=== PATIENT | female | born 1985 | race Caucasian/White ===

== ENCOUNTER 2019-05-16 16:32 | Outpatient (CLI) | payer OTHER, SELFPAY ==
--- NOTE | ~2019-05-16 | US_ITS ---
EXAMINATION: US OB /maternal detail DATE: 05/16/2019 17:57 INDICATION: Second trimester anatomic survey TECHNIQUE: Real-time ultrasound of the pelvis was performed. COMPARISON: None. FINDINGS: There is a single living fetus in vertex presentation. The placenta is anterior. heart rate is 154 beats per minute (bpm). cardiac activity and movement are noted. The amniotic fluid index is subjectively normal. The following anatomy was identified as normal: 4 chamber heart 3 vessel cord cord insertion kidneys urinary bladder stomach spine diaphragm ventricles cisterna magna cerebellum The following biometric data were obtained: Biparietal diameter (BPD): 4.7 cm; head circumference (HC): 18.3 cm; abdominal circumference (AC): 16 .4 cm; femur length (FL): 3.7 cm. These measurements are concordant. Estimated weight is 436 g +/- 65 g, which correlates with the >97th percentile when 10/01/2019 is used as estimated date of delivery. As single measurements, these parameters are each equal to the following estimated gestational ages w ith ranges of +/- 2 standard deviations: BPD: 20 weeks 3 days +/- 1 weeks 5 days. HC: 20 weeks 5 days +/- 1 weeks 3 days. AC: 21 weeks 3 days +/- 2 weeks 0 days. FL: 22 weeks 1 days +/- 1 weeks 6 days. estimated gestational age based solely on measurements from this exam is 21 weeks 1 days +/- 1 weeks 3 days. IMPRESSION: 1. Single living fetus in vertex presentation. 2. Estimated weight is 436 g +/- 65 g, which correlates with the >97th percentile when 10/01/2019 is used as estimated date of delivery. Reviewed, dictated and finalized at location A. [facility] IMPRESSION: 1. Single living fetus in vertex presentation. 2. Estimated weight is 436 g +/- 65 g, which correlates with the >97th pe rcentile when 10/01/2019 is used as estimated date of delivery.
== END 2019-05-16 16:33 | disposition home or self-care (01) ==
LOC: ANHIMG 16:39
PROVIDERS: Visit Provider Obstetrics & Gynecology
DX: Z34.90 Encounter for supervision of normal pregnancy, unspecified, unspecified trimester (principal); Z3A.21 21 weeks gestation of pregnancy
CPT/HCPCS: 76805

== ENCOUNTER 2019-07-18 08:40 | Observation (INO) | payer OTHER, SELFPAY ==
[2019-07-18 09:06] VITALS: BP 122/68; PULSE 84
[2019-07-18 09:10] VITALS: BMI 29.8
[2019-07-18 09:32] LABS: Add Urine Microscopic? YES; Appearance Urine Clear (Clear); Bilirubin Urine Negative (Negative); Blood Urine 1+ (Negative); Color Urine Straw (Yellow); Glucose Urine UA Negative (Negative); Ketones Urine Negative (Negative); Leukocyte Esterase Ur Negative LEU/UL (Negative); Mucus Urine Rare /lpf; Nitrate Urine Negative (Negative); Protein Urine Negative (Negative); Specific Grav Ur 1.014 (1.001-1.035); Squamous Epithelial Cell Urine Moderate /hpf (Few); Urobilinogen Urine Negative mg/dL (<2.0); WBC Urine 0-3 /hpf
[2019-07-18 10:00] VITALS: BP 122/73; PULSE 86
--- NOTE | 2019-07-18 16:20 | OBADM ---
This patient, Delmy Longoria, admitted to the OB room OB Post 117 for observation. Patient/family oriented to hospital policies and general routines including ID bracelet, bed and alarms, visiting hours, pain management, procedures, bathroom and other care routines, personal items, smoking policy, room service/diet, and visiting hours. Patient/Family are encouraged to report perceived risks to care and to ask questions if they do not understand what they are told or what they should do.
--- NOTE | 2019-07-22 10:38 | P.PNOB_ITS ---
OB - Triage/Final Diagnosis Visit Information Reason for evaluation: threatened labor Evaluation Laboratory results: Laboratory Tests 07/18/19 09:16 Urine Color Straw Urine Appearance Clear Urine pH 7.0 Ur Specific [place] 1.014 Urine Protein Negative Urine Glucose (UA) Negative Urine Ketones Negative Ur Blood (Man) 1+ H Urine Nitrate Negative Urine Bilirubin Negative Urine Urobilinogen Negative Leukocyte Esterase Rfl Negative Urine RBC 11-20 H Urine WBC 0-3 Ur Squamous Epith Cells Moderate H Urine Mucus Rare
== END 2019-07-18 10:23 | disposition home or self-care (01) ==
PROVIDERS: Admitting Provider Obstetrics & Gynecology; Visit Provider Obstetrics & Gynecology
DX: O47.03 False labor before 37 completed weeks of gestation, third trimester (principal); Z3A.29 29 weeks gestation of pregnancy
CPT/HCPCS: 81001; G0378; G0379

== ENCOUNTER 2019-09-17 15:43 | Outpatient (CLI) | payer OTHER, SELFPAY ==
[2019-09-17 16:15] VITALS: BP 126/71; PULSE 83
[2019-09-17 16:22] LABS: Basophils Percent Auto 0.2 % (0.2-1.2); Eosinophils Absolute Auto 0.1 K/mm3 (0-0.3); Eosinophils Percent Auto 0.8 % (0-4.4); Hematocrit 34.4 % (37.0-47.0); Hemoglobin 11.2 g/dL (12.0-15.0); Immature Granulocyte Absolute 0.05 K/mm3 (0.00-0.031); Immature Granulocyte Percent A 0.5 % (0-0.5); Lymphocytes Absolute Auto 1.84 K/mm3 (0.9-3.2); Lymphocytes Percent Auto 19.2 % (18.3-44.2); Mean Corpuscular HGB Conc 32.6 g/dl (32-36); Mean Corpuscular Hemoglobin 28.7 pg (26-34); Mean Corpuscular Volume 88.2 fl (80-100); Mean Platelet Volume 10.2 fl (7.4-10.4); Monocytes Absolute Auto 0.7 K/mm3 (0.1-0.6); Monocytes Percent Auto 7.7 % (2.6-8.5); Neutrophils Absolute Auto 6.8 K/mm3 (1.3-6.7); Neutrophils Percent Auto 71.6 % (45.5-73.1); Platelet Count Result 247 k/mm3 (150-375); Red Cell Distribution Width 16.3 % (11.5-14.5); White Blood Count 9.6 K/mm3 (4.5-10.0)
[2019-09-17 16:27] LABS: Add Urine Microscopic? YES; Amorphous Sediment Urine Few; Appearance Urine Clear (Clear); Bacteria Urine Trace /hpf; Bilirubin Urine Negative (Negative); Blood Urine 1+ (Negative); Color Urine Yellow (Yellow); Glucose Urine UA Negative (Negative); Ketones Urine Negative (Negative); Leukocyte Esterase Ur Negative LEU/UL (NEGATIVE); Mucus Urine Rare /lpf; Nitrate Urine Negative (Negative); Protein Urine Negative (Negative); Specific Grav Ur 1.012 (1.001-1.035); Squamous Epithelial Cell Urine Occasional /hpf (Few); Urobilinogen Urine Negative mg/dL (<2.0); WBC Urine 0-3 /hpf (0-3)
[2019-09-17 16:30] VITALS: BP 120/69; PULSE 82
[2019-09-17 16:32] LABS: Alanine Aminotransferase 16 U/L (4-35); Albumin Level 3.8 g/dL (3.5-5.1); Alkaline Phosphatase 112 U/L (38-126); Aspartate Amino Transferase 27 U/L (14-36); Bilirubin,Total 0.3 mg/dL (0.2-1.3); Blood Urea Nitrogen 5 mg/dL (7-17); Calcium 9.2 mg/dL (8.4-10.2); Carbon Dioxide 23 mmol/L (22-30); Chloride 106 mmol/L (98-107); Estimated Glomerular Filt Rate > 60; Glucose 114 mg/dL (65-105); Potassium 3.8 mmol/L (3.4-5.0); Sodium 134 mmol/L (137-145); Uric Acid 4.4 mg/dL (2.5-7.5)
--- NOTE | 2019-09-17 16:40 | PC.NURSE ---
Called Dr. Mcintosh with pt status. Pt states that she had a headache earlier that went away, and was gone on admission. Pt states that it is starting to come back. Also states that she had some starry vision earlier, but none currently. Lab results given. BPs given. Informed of contractions seen on monitor, but pt denies feeling them. Reactive tracing. July D/C home.
== END 2019-09-17 16:45 | disposition home or self-care (01) ==
LOC: ANHOBOP 15:49 → ANHOBPP 15:49
PROVIDERS: Obstetrics & Gynecology; Visit Provider Obstetrics & Gynecology
DX: O13.9 Gestational [pregnancy-induced] hypertension without significant proteinuria, unspecified trimester (principal); M79.89 Other specified soft tissue disorders; Z3A.00 Weeks of gestation of pregnancy not specified
CPT/HCPCS: 36415; 59025; 80053; 81001; 84550; 85025; 87086; 87088; 99199

== ENCOUNTER 2019-09-26 17:53 | Inpatient (IN) | payer OTHER, MEDICAID, SELFPAY ==
[2019-09-26] VITALS (10 sets, daily range): BP systolic 118–143; BP diastolic 68–82; PULSE 77–94; RESP 18–20; TEMP 36.4–37.1; BMI 32.9
--- NOTE | 2019-09-26 17:53 | LDADM ---
This patient, Delmy Longoria, was admitted to Labor/Delivery/Recovery 104 on 09/26/19 at 17:53. Plans for labor, pain management and were discussed with patient. Patient/family oriented to hospital policies and general routines including ID bracelet, bed and alarms, visiting hours, pain management, procedures, bathroom and other care routines, personal items, smoking policy, room service/diet and guest tray routines, security routines, and visiting hours. Patient/Family are encouraged to report perceived risks to care and to ask questions if they do not understand what they are told or what they should do. See OBIX for further documentation.
[2019-09-26] MEDS: DINOPROSTONE 10 MG VAG INSERT VAGINAL (18:37)
[2019-09-26 18:38] LABS: Basophils Percent Auto 0.2 % (0.2-1.2); Eosinophils Absolute Auto 0.1 K/mm3 (0-0.3); Eosinophils Percent Auto 0.8 % (0-4.4); Hematocrit 34.5 % (37.0-47.0); Hemoglobin 11.4 g/dL (12.0-15.0); Immature Granulocyte Absolute 0.06 K/mm3 (0.00-0.031); Immature Granulocyte Percent A 0.6 % (0-0.5); Lymphocytes Absolute Auto 2.16 K/mm3 (0.9-3.2); Lymphocytes Percent Auto 23.3 % (18.3-44.2); Mean Corpuscular Hemoglobin 28.8 pg (26-34); Mean Corpuscular Volume 87.1 fl (80-100); Mean Platelet Volume 10.2 fl (7.4-10.4); Monocytes Percent Auto 10.5 % (2.6-8.5); Neutrophils Percent Auto 64.6 % (45.5-73.1); Platelet Count Result 232 k/mm3 (150-375); Red Blood Count 3.96 M/mm3 (4.2-5.4); Red Cell Distribution Width 16.2 % (11.5-14.5); White Blood Count 9.3 K/mm3 (4.5-10.0)
[2019-09-27] VITALS (163 sets, daily range): BP systolic 68–143; BP diastolic 27–109; PULSE 62–149; RESP 13–20; TEMP 36.4–37.2; O2SAT 90–100
[2019-09-27] MEDS: LACTATED RINGERS 1,000 ML 125 ML IV CONT ×4 (05:35→15:34)
[2019-09-27] MEDS: OXYTOCIN 30 UNITS/NS 500 ML 30 UNITS/500 ML BAG 6 UNITS IV CONT (05:35)
--- NOTE | 2019-09-27 08:33 | WPDANESEPPF ---
Anes - Initial Pre Proc Eval Procedure: Labor Epidural Date/Time: 09/27/19 08:33 Surgeon: Shahbaz Yadav MD Pre Op Diagnosis: IOL Patient Data Age: 33 Gender: F Height: 1.7 m Weight: 95.4 kg Last Vital Signs Temp 36.5 C 09/27/19 06:25 Pulse 87 09/27/19 08:30 Resp 20 09/27/19 05:35 BP 129/73 09/27/19 08:30 Allergies Allergy/AdvReac Type Severity Reaction Status Date / Time No Known Allergies Allergy Verified 09/06/19 13:29 Home Medications Medication Instructions Recorded Confirmed Type Gummy 2 tablet PO DAILY 03/06/19 09/26/19 History ferrous sulfate 325 mg PO BID 09/06/19 09/26/19 History Laboratory Tests 09/26/19 09/26/19 09/26/19 18:26 18:26 18:26 WBC 9.3 K/mm3 K/mm3 (4.5-10.0) RBC 3.96 M/mm3 L M/mm3 (4.2-5.4) Hgb 11.4 g/dL L g/dL (12.0-15.0) Hct 34.5 % L % (37.0-47.0) MCV 87.1 fl fl (80-100) MCH 28.8 pg pg (26-34) MCHC 33.0 g/dl g/dl (32-36) RDW 16.2 % H % (11.5-14.5) Plt Count 232 k/mm3 k/mm3 (150-375) MPV 10.2 fl fl (7.4-10.4) Immature Gran % (Auto) 0.6 % H % (0-0.5) Neut % (Auto) 64.6 % % (45.5-73.1) Lymph % (Auto) 23.3 % % (18.3-44.2) [place] % (Auto) 10.5 % H % (2.6-8.5) Eos % (Auto) 0.8 % % (0-4.4) Baso % (Auto) 0.2 % % (0.2-1.2) Lymph # (Auto) 2.16 K/mm3 K/mm3 (0.9-3.2) [place] # (Auto) 1.0 K/mm3 H K/mm3 (0.1-0.6) Eos # (Auto) 0.1 K/mm3 K/mm3 (0-0.3) Baso # (Auto) 0.0 K/mm3 K/mm3 (0.0-0.1) Abs Immat Gran (auto) 0.06 K/mm3 H K/mm3 (0.00-0.031) Absolute Neuts (auto) 6.0 K/mm3 K/mm3 (1.3-6.7) Absolute Nucleated RBC 0.0 K/mm3 K/mm3 (0.0-0.012) Nucleated RBC % 0.0 % % (0.0-0.2) RPR Pending Blood Type O Positive Antibody Screen Negative Patient hx anesthesia problems: none Family hx anesthesia problems: none PMFSH Past Medical History Medical History Arm fracture, left age 7 No pertinent family history Skull fracture age 4 Surgical History Surgical History No significant past surgical history Family History Family History Father Hypertension Grandparent Diabetes mellitus Social History Social History Social History: 2017 Smoking status: Former smoker Substance use: never Spiritual care concerns: No Anes - Eval Final PreProcedure Day of Procedure 09/27/19 08:33 Patient weight: obese Heart: regular rate and rhythm Lungs: normal air movement Airway: Mallampati scale class II Neurological: alert and oriented ASA classification: II Emergent: no Anesthetic plan: proceed Anesthesia type and monitoring: regional epidural Informed Consent: The patient's anesthetic plan and its attendant risks and benefits were discussed with the patient/family/POA. Questions were solicited and answers provided to the satisfaction of the patient/family/POA.
[2019-09-27] MEDS: SODIUM CHLORIDE 0.9% IV 1,000 ML 150 ML I-UTERINE (10:48)
--- NOTE | 2019-09-27 17:18 | WPDANESEFPP ---
Anes - Eval Final PreProcedure Day of Procedure 09/27/19 17:18 Patient weight: obese Heart: regular rate and rhythm Lungs: clear to auscultation and normal air movement Airway: Mallampati scale class II Neurological: alert and oriented Last oral intake: >/= 8 hours ASA classification: II Emergent: no Anesthetic plan: proceed Anesthesia type and monitoring: regional epidural and standard monitoring Informed Consent: The patient's anesthetic plan and its attendant risks and benefits were discussed with the patient/family/POA. Questions were solicited and answers provided to the satisfaction of the patient/family/POA.
--- NOTE | 2019-09-27 17:20 | PM.IMHP ---
H&P: HPI History of Present Illness Chief complaint: IOL Narrative: Delmy Longoria is a 33 year old female presents for induction of labor at39+ weeks. She has had elevated blood pressures in office though her repeat testing and testing has been within normal limits. She has had Cervidil last p.m. followed by amniotomy and Pitocin induction throughout today. She is now up in 5-6 cm swollen cervix and swollen vulva and we will be proceeding with delivery. Options discussed patient and she agrees. Review of Systems Review of Systems: All systems reviewed & are unremarkable except as noted in HPI and below PMFSH Past Medical History Medical History Arm fracture, left age 7 No pertinent family history Skull fracture age 4 Surgical History Surgical History No significant past surgical history Family History Family History Father Hypertension Grandparent Diabetes mellitus Social History Social History Social History: 2017 Smoking status: Former smoker Substance use: never Spiritual care concerns: No Meds Home Medications and Allergies Home Medications Medication Instructions Recorded Confirmed Type Gummy 2 tablet PO DAILY 03/06/19 09/26/19 History ferrous sulfate 325 mg PO BID 09/06/19 09/26/19 History Allergies Allergy/AdvReac Type Severity Reaction Status Date / Time No Known Allergies Allergy Verified 09/06/19 13:29 Vital Signs Vital Signs - 24 hr 09/26/19 18:16 09/26/19 18:50 09/26/19 19:00 Temperature 37.1 C Pulse Rate 92 93 94 Respiratory Rate 20 Blood Pressure 143/80 H 125/82 123/69 Pulse Oximetry 09/26/19 19:15 09/26/19 19:30 09/26/19 19:45 Temperature Pulse Rate 80 83 85 Respiratory Rate Blood Pressure 132/77 127/76 128/68 Pulse Oximetry 09/26/19 20:00 09/26/19 20:15 09/26/19 20:30 Temperature Pulse Rate 81 88 77 Respiratory Rate Blood Pressure 127/78 118/79 121/69 Pulse Oximetry 09/26/19 20:40 09/27/19 00:43 09/27/19 00:46 Temperature 36.4 C 36.4 C L Pulse Rate 64 62 Respiratory Rate 18 18 Blood Pressure 143/77 H 131/77 Pulse Oximetry 09/27/19 01:00 09/27/19 05:35 09/27/19 05:45 Temperature 36.8 C Pulse Rate 63 72 77 Respiratory Rate 20 Blood Pressure 130/79 132/72 126/83 Pulse Oximetry 09/27/19 06:00 09/27/19 06:15 09/27/19 06:25 Temperature 36.5 C Pulse Rate 89 86 Respiratory Rate Blood Pressure 141/85 H 140/77 Pulse Oximetry 09/27/19 06:46 09/27/19 07:00 09/27/19 07:16 Temperature Pulse Rate 87 88 101 H Respiratory Rate Blood Pressure 131/76 131/81 131/109 H Pulse Oximetry 09/27/19 08:16 09/27/19 08:30 09/27/19 08:46 Temperature 36.5 C Pulse Rate 79 87 71 Respiratory Rate Blood Pressure 128/76 129/73 120/74 Pulse Oximetry 09/27/19 09:01 09/27/19 09:36 09/27/19 09:40 Temperature Pulse Rate 80 84 Respiratory Rate Blood Pressure 130/80 136/72 Pulse Oximetry 100 09/27/19 09:42 09/27/19 09:44 09/27/19 09:45 Temperature Pulse Rate 98 92 Respiratory Rate Blood Pressure 128/77 132/73 Pulse Oximetry 100 09/27/19 09:46 09/27/19 09:48 09/27/19 09:50 Temperature Pulse Rate 92 101 H Respiratory Rate Blood Pressure 125/75 132/68 Pulse Oximetry 100 09/27/19 09:51 09/27/19 09:53 09/27/19 09:54 Temperature Pulse Rate 79 76 79 Respiratory Rate Blood Pressure 109/63 68/27 L 109/69 Pulse Oximetry 09/27/19 09:55 09/27/19 09:57 09/27/19 09:58 Temperature Pulse Rate 82 81 91 Respiratory Rate Blood Pressure 114/68 117/68 119/71 Pulse Oximetry 100 09/27/19 09:59 09/27/19 10:00 06/27/20 10:02 Temperature 36.4 C Pulse R
[2019-09-27] MEDS: ceFAZolin 2 GM/D5W 50 ML 2 GM/50 ML BAG IVPB (17:50)
--- NOTE | 2019-09-27 18:42 | P.PCNOB_ITS ---
OB - Delivery Note Procedure Procedure: Procedures Operation Date: 09/27/19 17:50 <No data on this case meets the specified criteria> Intrapartal events: Failure to Progress in Labor Route of delivery: Estimated blood loss (mL): 860 Anesthesia type: Spinal Disposition: PACU Narrative: Patient prepped and draped in the usual manner for this procedure. Pfannenstiel incision was made which was carried down to the fascia. This was extended bilaterally and then the fascia was dissected away from the rectus muscles. Rectus muscles were bluntly dissected peritoneum was readily entered the bladder flap was developed. Lower transverse incision was made extended lower length of the segment. Vertex was delivered without difficulty in the rest of the baby also with further pushing. Cord clamped and cut baby was passed off the operative field and the placenta was removed manually. Uterus was exteriorized approximated using 0 Monocryl in a running interlocking manner once the membranes and clots had been removed from the uterine cavity. Small area of of bleeding in the lower segment was readily rendered hemostatic with a [id number] 0 Maxon suture. All subfascial tissue was noted be hemostatic and the fascia was approximated using 0 Vicryl from left angle midline right an gle to the midline with good approximation hemostasis noted sub. Subcutaneous tissues approximated 0 plain suture and the skin sandra were used to approximate the skin edges. Patient tolerated procedure well sent recovery room in stable condition. [place] Baby Weeks of gestation at delivery: 39 Infant gender: Male Weight (pounds): 8 Weight (ounces): 0 score one minute: 8 score five minutes: 9
[2019-09-27] MEDS: OXYTOCIN 30 UNITS/NS 500 ML 30 UNITS/500 ML BAG 125 UNITS IV CONT (19:19)
--- NOTE | 2019-09-27 20:29 | SUR.PHASEI ---
Report called to María SHELLEY. Pt going to room 282 for pp care once recovery completed.
--- NOTE | 2019-09-27 22:40 | PC.NURSE ---
This patient, Delmy Longoria, was received from Labor & delivery on 09/27/19 at 2240. Personal belongings list checked and signed. Patient/family oriented to unit policies and routines
[2019-09-28] VITALS: BP 111/62; PULSE 92; O2SAT 97
[2019-09-28] MEDS: ACETAMINOPHEN 325 MG TABLET 650 MG PO ×2 (00:15→12:01)
[2019-09-28] MEDS: IBUPROFEN 600 MG TABLET PO ×3 (00:15→22:52)
[2019-09-28 01:00] VITALS: BP 116/67; PULSE 100; O2SAT 98
[2019-09-28 05:28] LABS: Basophils Absolute Auto 0.1 K/mm3 (0.0-0.1); Basophils Percent Auto 0.3 % (0.2-1.2); Eosinophils Percent Auto 0.2 % (0-4.4); Hematocrit 27.6 % (37.0-47.0); Hemoglobin 8.9 g/dL (12.0-15.0); Immature Granulocyte Absolute 0.09 K/mm3 (0.00-0.031); Immature Granulocyte Percent A 0.6 % (0-0.5); Lymphocytes Absolute Auto 1.75 K/mm3 (0.9-3.2); Lymphocytes Percent Auto 11.1 % (18.3-44.2); Mean Corpuscular HGB Conc 32.2 g/dl (32-36); Mean Corpuscular Hemoglobin 28.8 pg (26-34); Mean Corpuscular Volume 89.3 fl (80-100); Mean Platelet Volume 10.5 fl (7.4-10.4); Monocytes Absolute Auto 1.5 K/mm3 (0.1-0.6); Monocytes Percent Auto 9.5 % (2.6-8.5); Neutrophils Absolute Auto 12.3 K/mm3 (1.3-6.7); Neutrophils Percent Auto 78.3 % (45.5-73.1); Platelet Count Result 182 k/mm3 (150-375); Red Blood Count 3.09 M/mm3 (4.2-5.4); Red Cell Distribution Width 16.6 % (11.5-14.5); White Blood Count 15.7 K/mm3 (4.5-10.0)
[2019-09-28 08:00] VITALS: BP 109/58; PULSE 84; RESP 18; TEMP 36.4
[2019-09-28] MEDS: SIMETHICONE 80 MG TAB.CHEW PO ×4 (08:45→22:52)
[2019-09-28] MEDS: LANOLIN (LANSINOH) 7.5 GM CREAM 1 APPLIC TOPICAL (08:45)
[2019-09-28] MEDS: POLYSACCHARIDE IRON COMPLEX 150 MG CAPSULE PO ×2 (08:45→16:01)
[2019-09-28] MEDS: MULTIVIT/MIN/PREN/FOL AC/IRON TABLET 1 TAB PO (08:45)
[2019-09-28] MEDS: DOCUSATE SODIUM 100 MG CAPSULE PO ×2 (08:46→16:03)
[2019-09-28] MEDS: KETOROLAC 30 MG/ML VIAL (*BKC) IV PUSH (08:46)
--- NOTE | 2019-09-28 09:44 | WPDANLDPN2 ---
Anes-Prog Note L&D Date/Time: 09/28/19 09:44 Comfortable throughout: labor and section Neuraxial method: epidural Epidural/Spinal procedure site: clean & non-tender Neuro status: Neuro function grossly intact. Cardiovascular status: normal Respiratory status: normal Airway patency: baseline Mental status: baseline Post-Op hydration status: normal Vital Signs: Last Vital Signs Temp 36.7 C 09/27/19 21:35 Pulse 100 09/28/19 01:00 Resp 16 09/27/19 21:35 BP 116/67 09/28/19 01:00 Pulse Ox 98 09/28/19 01:00 Pain score (VAS): 0/10. Patient resting in bed at time of assessment, appears comfortable. Support person at bedside. I/O: Intake & Output 09/27/19 09/28/19 09/28/19 23:59 07:59 15:59 Intake Total 550 Output Total 365 Balance 185 Post-procedural complaints: none Patient feedback: Patient satisfied with anesthetic care.
--- NOTE | 2019-09-28 09:44 | WPDANLDNPN2 ---
Anes-Prog Note L&D-Neuraxial Date/Time: 09/28/19 09:44 Neuraxial medications: epidural PF morphine Opiod-related complaints: none Patient feedback: Patient satisfied with post-operative pain management.
[2019-09-28 12:00] VITALS: BP 115/56; PULSE 80; RESP 18; TEMP 36.6
--- NOTE | 2019-09-28 12:17 | PM.OBDSVD ---
DS: Admitting Diagnosis Admitting Diagnosis Admitting Diagnosis: Encounter for supervision of normal , unspecified, unspecified trimester OB - DS: Summary OB Procedures : None OB Procedures Intrapartum: OB Procedures: : None Peripartum Data Procedures: Procedures Operation Date: 09/27/19 17:50 Actual Procedures Side Surgeon p Section Shahbaz Yadav MD Time Spent with Patient Time attestation: Total time spent providing and/or coordinating discharge services: DS: Data Data Completed and Pending Labs on day of discharge: Labs from last 24 hours 09/28/19 05:13 WBC 15.7 H RBC 3.09 L Hgb 8.9 L Hct 27.6 L MCV 89.3 MCH 28.8 MCHC 32.2 RDW 16.6 H Plt Count 182 MPV 10.5 H Immature Gran % (Auto) 0.6 H Neut % (Auto) 78.3 H Lymph % (Auto) 11.1 L [place] % (Auto) 9.5 H Eos % (Auto) 0.2 Baso % (Auto) 0.3 Lymph # (Auto) 1.75 [place] # (Auto) 1.5 H Eos # (Auto) 0.0 Baso # (Auto) 0.1 Abs Immat Gran (auto) 0.09 H Absolute Neuts (auto) 12.3 H Absolute Nucleated RBC 0.0 Nucleated RBC % 0.0 Discharge Plan Discharge Consulting providers: Arthur Melchor Discharging Clinician: Shahbaz Yadav Patient Disposition: Home, Self-Care Activity: as tolerated Diet: as tolerated Wound Care Instructions: incision open to air Patient Instructions: Antibiotic Form Stand Alone Forms: General Discharge Information Follow-up/Referrals: Shahbaz Yadav MD [Physician] - 3 Weeks Discharge Medications: New hydrocodone-acetaminophen 5-325 mg Tablet 1 tab PO Q3H PRN (Reason: Moderate Pain (4-6)) Qty: 20 RF: 0 ibuprofen 600 mg Tablet 600 mg PO Q6H PRN (Reason: Cramping) Qty: 30 RF: 0 Continued Gummy 400 mcg-35 mg -25 mg-5 mg Tablet,Chewable 2 tablet PO DAILY RF: 0 ferrous sulfate 325 mg (65 mg iron) Tablet 325 mg PO BID RF: 0 Date of admission: 09/26/19 17:53 Primary Care Provider: PHYSICIAN,[facility]ER Admitting Provider: Shahbaz Yadav Attending physician on admission: Shahbaz Yadav
[2019-09-28 16:00] VITALS: BP 110/60; PULSE 80; RESP 20; TEMP 36.8
[2019-09-28 19:00] VITALS: BP 110/59; PULSE 70; PULSE 80; RESP 14; RESP 20; TEMP 36.7; O2SAT 98; O2SAT 99
[2019-09-29] MEDS: SIMETHICONE 80 MG TAB.CHEW PO ×2 (05:35→11:59)
[2019-09-29] MEDS: IBUPROFEN 600 MG TABLET PO ×2 (05:36→11:58)
[2019-09-29 08:00] VITALS: BP 107/70; PULSE 84; RESP 18; TEMP 36.8; O2SAT 100
[2019-09-29] MEDS: MULTIVIT/MIN/PREN/FOL AC/IRON TABLET 1 TAB PO (08:51)
[2019-09-29] MEDS: DOCUSATE SODIUM 100 MG CAPSULE PO (08:51)
[2019-09-29] MEDS: POLYSACCHARIDE IRON COMPLEX 150 MG CAPSULE PO (08:52)
[2019-09-29] MEDS: TETANUS,DIPHTHERIA,AC PERTUSSIS ADULT (0.5 ML) BOOSTRIX IM (08:55)
--- NOTE | 2019-09-29 09:15 | PC.NURSE ---
Upon entering mother has to breast with nipple shield. Mother reports she is using the shield due to will not drop his tongue to allow a correct latch. Reviewed feeding cues, frequencies, duration of feedings, feeding elimination flow sheet, and signs of adequate intake. Discussed nipple shield precautions and possible complications. Instructions given on application and cleaning of shield. Patient able to return demonstration on proper application of shield. Discussed the need for regular pumping until milk supply is established if mother continues to nurse with the shield. Patient verbalizes understanding. Mother has infant in cradle position with a shallow latch. Reviewed positioning/alignment in cross cradle, holding breast in U hold and guided asymmetrical latch on. Discussed rational for each. Mother repositioned with holding breast, reporting she could feel was latched more deeply and could feel infant had a more consistent suck swallow. Infant nursed eagerly with steady draws and occasional swallowing noted for bursts followed with long pausing. Advised to stimulate to keep infant awake and nursing effectively for increased intake and to assist maintaining deep latch. Reviewed signs of a correct latch, effective nursing and suck swallow ratio. was able to maintain latch without discomfort to mother. Nipple care reviewed. Mother states she has been supplementing at times and is concerned infant is getting enough. Reviewed supplementation of small amounts each feeding after . Discussed when to increase and signs when infant is ready to decrease supplementation. Mother to independently latch infant with appropriate positioning/alignment. She denies any nipple discomfort, is feeding as required and waking infant to feed if needed. Infant has had at least effective feedings in the past 24 hours, and is currently meeting outcomes for weight, output, jaundice and feeding frequencies. Mother states she feels confident to continue effective at home. Reviewed transition to breast milk, signs of adequate intake, and engorgement/relief. Instructed to call ICP if intake/output less than required. Reviewed regular medications mother is taking. Information provided per Afsaneh. Reviewed community resources on the [employer] website and in the Mom/Baby guide. Information on outpatient services provided. Mother has no further questions at this time.
--- NOTE | 2019-09-29 13:06 | PC.NURSE ---
1000-Patient viewed the discharge video Mother & Baby Care, The First Two Weeks . Patient was given the opportunity and encouraged to ask questions. Patient verbalized understanding of information shared and has been given the mother/baby guide for home reference.
[2019-09-29 13:33] LABS: Rapid Plasma Reagin Non-Reactive (NonReactive)
[2019-09-30 07:54] VITALS: BP 117/62; PULSE 84; RESP 20; TEMP 36.9; O2SAT 99
--- NOTE | 2019-10-20 07:11 | PM.OBDSVD ---
DS: Admitting Diagnosis Admitting Diagnosis Admitting Diagnosis: Encounter for supervision of normal , unspecified, third trimester OB - DS: Summary OB Procedures : None OB Procedures Intrapartum: OB Procedures: : None Peripartum Data Procedures: Procedures Operation Date: 09/27/19 17:50 Actual Procedures Side Surgeon p Section Shahbaz Yadav MD Time Spent with Patient Time attestation: Total time spent providing and/or coordinating discharge services: Discharge Plan Discharge Consulting providers: Arthur Melchor ; Santi Lopez Discharging Clinician: Shahbaz Yadav Patient Disposition: Home, Self-Care Activity: as tolerated Diet: as tolerated Wound Care Instructions: incision open to air Discharge Instructions: Education: Mom and Baby Guide Given to: Mother Follow-Up: Call your delivering provider's office for an appointment to be seen in: 2 Weeks Mom and baby should come to the [facility] for the follow-up appointment. Appointment Date/Time:Monday, September 30, 2019 at 8:00 am What to expect at your follow-up visit: Blood Pressure Check Physical Assessment Removal of Hina HINA ATTACHED TO FOLLOW UP PAPER WORK. Call [phone] if you are unable to keep your appointment time. BREAST CARE: 1. Wear a snug supportive bra. 2. For engorgement discomfort: Breast Feeding: A. Apply warm moist washcloths B. Express milk as needed to relieve engorgement C. Wear loose clothing Bottle Feeding: A. May apply ice packs 3. For sore nipples: A. Identify correct latch-on B. Apply warm moist washcloths before and after nursing C. Air dry nipples after nursing D. May apply Lansinoh cream to nipples ABDOMINAL INCISION: (if applicable) 1. Allow incision to air dry 2. Do NOT use lotions for powders on your incision 3. When showering, allow soap and water to run over the incision, but do not wash incision EPISIOTOMY/PERINEAL CARE: 1. Until bleeding stops, use your mady bottle after urinating 2. Change your pad frequently throughout the day 3. You may take sitz baths several times a day (fill your bathtub with warm water and soak for 20 minutes.) Do NOT bathe in the water 4. No tub baths until seen by your physician - You may shower ACTIVITY: 1. Rest as much as possible. 2. Do not exercise or lift anything heavier than your baby (such as laundry or other children.) 3. Avoid stairs or driving as much as possible. 4. Do not put anything into the vagina. No douching, tampons, or sexual activity until seen by physician. NOTIFY PHYSICIAN IF YOU HAVE ANY QUESTIONS OR IF ANY OF THE FOLLOWING SYMPTOMS OCCUR: 1. If your incision becomes red, swollen, or more painful than what you have experienced in the hospital. 2. If your vaginal bleeding becomes foul smelling. 3. If your vaginal bleeding becomes more heavy than a period or if your bleeding changes from pink to bright red. However, you may pass an occasional walnut-sized clot once or twice for the first week . 4. If you experience a sharp, shooting pain in you calves. 5. If you discover a hard, reddened area on your breast or if you experience flu-like symptoms. DIET: 1. Eat regular, well-balanced meals. 2. Drink plenty of fluids daily. If , drink to thirst. Stand Alone Forms: General Discharge Information Follow-up/Referrals: Shahbaz Yadav MD [Physician] - 3 Weeks Discharge Medications: New hydrocodone-acetaminophen 5-325 mg Tablet 1 tab PO Q3H PRN (Reason: Moderate Pain (4-6)) Qty: 20 RF: 0 ibuprofen 600 mg Tablet 600 mg PO Q6H PRN (Reason: Cramping) Qty: 30 RF: 0 Continued Gummy 400 mcg-35 mg -25 mg-5 mg Tablet,Chewable 2 tablet PO DAILY RF: 0 ferrous sulfate 325 mg (65 mg iron) Tablet 325 mg PO B
== END 2019-09-29 13:01 | disposition home or self-care (01) | DRG 788 ==
LOC: ANHLDR 17:57 → ANHOB2 09-27 21:33
PROVIDERS: Admitting Provider Obstetrics & Gynecology; Visit Provider Obstetrics & Gynecology
PROC: 10D00Z1 Extraction of Products of Conception, Low, Open Approach (ICD-10-PCS; CPT 59514; principal; 2019-09-27 17:50)
DX: O16.4 Unspecified maternal hypertension, complicating childbirth (principal); Z37.0 Single live birth; Z3A.39 39 weeks gestation of pregnancy; O62.0 Primary inadequate contractions; O36.8330 Maternal care for abnormalities of the fetal heart rate or rhythm, third trimester, not applicable or unspecified; O69.81X0 Labor and delivery complicated by cord around neck, without compression, not applicable or unspecified; O99.214 Obesity complicating childbirth; E66.9 Obesity, unspecified
CPT/HCPCS: 36415; 85025; 86592; 86850; 86900; 86901; 90715; A9270; J0131; J0690; J1885; J2274; J2405; J2590; J2795; J3010; J7030; J7120

== ENCOUNTER 2023-09-07 14:59 | Emergency (ER) | payer OTHER, SELFPAY ==
[2023-09-07 15:09] VITALS: BP 133/73; PULSE 70; RESP 16; TEMP 37.2; O2SAT 100
--- NOTE | 2023-09-07 15:15 | ED.URI ---
HPI - URI/Sore Throat General Chief Complaint: Upper Respiratory Infection Stated Complaint: throat/ear/congestion Time Seen by Provider: 09/07/23 15:15 Source: patient, RN notes reviewed and old records reviewed Mode of arrival: ambulatory Limitations: no limitations History of Present Illness HPI Narrative: 37-year-old female who presents to [facility] with complaints of sore throat, ear pain, and some runny nose for the past 2 days. Patient reports that she has had a cough with some expectoration of some brownish tinged mucous. Patient denies any known fevers or any ill contacts. Patient has been taking some Tyleol for her symptoms. MD elicited complaint: cough, sore throat, rhinorrhea, nasal congestion and other (ear ) Onset (ago): day(s) (2) Pain scale (0-10): 4 Description of mucous: other (brownish) Able to tolerate fluids by mouth: Yes Treatments prior to arrival: acetaminophen Related Data Allergies Allergy/AdvReac Type Severity Reaction Status Date / Time No Known Allergies Allergy Verified 09/07/23 15:08 Review of Systems Review of Systems: CONSTITUTIONAL: Denies malaise, chills, sweats, or fever. EYES: Denies visual changes, redness, or discharge. ENT: Reports rhinorrhea, congestion, sinus pain, otalgia and sore throat. CARDIOVASCULAR: Denies chest pain, palpitations, or edema. RESPIRATORY: Reports cough.? Denies dyspnea. GASTROINTESTINAL: Denies abdominal pain, nausea, vomiting, diarrhea SKIN: Denies rash or itching. MUSCULOSKELETAL: Denies myalgia. NEUROLOGIC: Denies headache. All systems reviewed & are unremarkable except as noted in HPI and below PMFSH Past Medical History Medical History Anemia Arm fracture, left age 7 Skull fracture age 4 UTI (urinary tract infection) Surgical History Surgical History H/O laparoscopy removal of uterine polyps Previous section Family History Family History Father Hypertension Grandparent Diabetes mellitus Social History Social History Social History: quite 2018 Smoking status: Former smoker Alcohol intake: current Alcohol use details: rare social Substance use: never Spiritual care concerns: No Comments At time of signature, agree with nursing past medical, surgical, social and family history. There is no relevant family history pertinent to the presenting complaint Exam Narrative: GENERAL: Well-appearing, well-nourished, and in no acute distress. HEAD: Normocephalic EYES: PERRLA, conjunctivae clear ENT: Nares clear, turbinates edematous and erythematous, clear discharge. Mucous membranes moist.Left TM red, Right TM pearly hernandez with dull light reflex; no tragal tenderness. Oropharynx erythematous without lesions. Tonsils not enlarged and without exudate, no drooling, no hoarseness, no trismus, uvula midline.some post nasal discharge NECK: Supple. No lymphadenopathy CHEST: Clear to auscultation, breath sounds equal. No wheezing, rhonchi, rales, or stridor. No respiratory distress, speaks in full sentences.SAO2 100% on room air HEART: Regular rate and rhythm. No murmur heard. SKIN: Warm, dry, no rash. NEURO: Alert and oriented x3. PSYCH: Normal mood and affect Course Course Emergency Course: Patient is aware of diagnosis, understands and agrees to treatment plan.? Anticipatory guidance given.? Patient agrees to follow-up as directed and is aware of reasons to seek care at the emergency department. Portions of this record may have been created with voice recognition software Level of Care: Express Care Visit Vital Signs Vital signs: Vital Signs Temperature 37.2 C 09/07/23 15:09 Pulse Rate 70 09/07/23 15:09 Respiratory Rate 16 09/07/23 15:09 Blood
== END 2023-09-07 15:30 | disposition home or self-care (01) ==
PROVIDERS: Emergency Provider Registered Nurse
DX: H66.92 Otitis media, unspecified, left ear (principal); Z87.891 Personal history of nicotine dependence
CPT/HCPCS: 99213; G0463